=== PATIENT | male | born 1960 ===

== ENCOUNTER 2022-07-05 00:41 | Inpatient (IN) | payer SELFPAY ==
[2022-07-05] VITALS (97 sets, daily range): BP systolic 90–178; BP diastolic 60–125; PULSE 76–124; RESP 12–28; TEMP 36.6–36.9; O2SAT 92–100; BMI 24.0
--- NOTE | 2022-07-05 00:44 | CTR_ITS ---
PROCEDURE INFORMATION: Exam: CT Right Lower Extremity Without Contrast, Foot Exam date and time: 07/05/2022 12:57 AM Age: 61 years old Clinical indication: Other: Infection; Patient HX: Necrotic wound to 2nd digit of RT foot. History of diabetes. TECHNIQUE: Imaging protocol: CT of the Right lower extremity without contrast was performed. Exam focused on the foot. Radiation optimization: All CT scans at this facility use at least one of these dose optimization techniques: automated exposure control; mA and/or kV adjustment per patient size (includes targeted exams where dose is matched to clinical indication); or iterative reconstruction. COMPARISON: No relevant prior studies available. RADIATION DOSE METRICS: Total DLP (mGy-cm): 130.49 FINDINGS: Bones/joints: Destructive bony changes/osteolysis of the right 2nd toe proximal phalanx distal aspect with dorsomedially displaced pathologic fracture. Right 2nd toe middle phalanx bony irregularity and intra osseous gas. Approximately 8 mm right 1st toe proximal phalanx base subcortical cyst versus intraosseous ganglion cyst. Soft tissues: Distal right 2nd toe soft tissue ulcer/defect, soft tissue swelling and subcutaneous emphysema. CT/CT foot RT wo con* [id number] IMPRESSION: 1. Right 2nd toe ulcer with cellulitis, gas gangrene and osteomyelitis with distal right 2nd toe proximal phalanx dorsomedially displaced pathologic fracture. 2. Approximately 8 mm right 1st toe proximal phalanx base subcortical cyst versus intraosseous ganglion cyst.
--- NOTE | 2022-07-05 00:45 | ED_ITS ---
HPI - General Adult General: Chief complaint: Wound/Laceration Stated complaint: Wound R Foot Time Seen by Provider: 07/05/22 00:43 Source: patient Mode of arrival: ambulatory Limitations: no limitations History of Present Illness: 61-year-old male who presents here with EMS he is a diabetic he states he dropped a knife on his foot 2 to 3 weeks ago. He states that he has been trying to treat with peroxide he has been having swelling and redness and some pain. Denies any fevers denies any worsening improving factors has not seen any providers for this. Associated symptoms: Deny chest pain, dyspnea, headache(s), nausea, rash or vomiting Review of Systems Const: Denies: fever(s), chills, body aches or change in appetite Eyes: Denies: blurry vision or eye discomfort ENMT: Denies: throat pain or dental pain Card: Denies: chest pain Resp: Denies: dyspnea GI: Denies: abdominal pain, nausea, vomiting or diarrhea : Denies: dysuria Musc: Reports: extremity pain and extremity swelling Skin/Breast: Denies: rash Neuro: Denies: headache(s) Psych: Denies: depression Ken/Lymph: Denies: easy bruising All/Imm: Denies: urticaria PFSH ED PFSH: Medical History Diabetes Social History (Updated 07/05/22 @ 00:47 by Mason Cueva MD) Substance/Drug Use: never Physical Exam Const: COMMON NORMALS: patient oriented x3 HENMT: COMMON NORMALS: normocephalic and atraumatic HEAD & SCALP: normocephalic and atraumatic Eye: COMMON NORMALS: Equal, round and reactive pupils present and EOMs intact bilaterally PUPIL: Yes Equal, round and reactive pupils present Neck/C-Spine: COMMON NORMALS: full ROM and supple Chest: COMMONS NORMALS: normal inspection of the chest and normal palpation of entire chest wall Resp: COMMON NORMALS: normal respiratory effort, No retractions, No use of ac cessory muscles and clear to auscultation bilaterally AUSCULTATION: clear to auscultation bilaterally Cardio: COMMON NORMALS: regular rate, regular rhythm and No murmurs present (Cardio) RATE: regular rate RHYTHM: regular rhythm GI: COMMON NORMALS: Normal to inspection, nondistended, normoactive bowel sounds present, Soft to palpation, non-tender and no masses PALPATION: Yes Soft to palpation Extremity: OTHER: Swelling to right great and second toe with what appears to be some necrosis Neuro: COMMON NORMALS: patient oriented x3, moves all extremities and no focal motor deficits Psych: COMMON NORMALS: mental status grossly normal, Normal thought process present and cooperative THOUGHT PROCESS: Normal thought process present Skin: COMMON NORMALS: no rashes or lesions noted and no wounds GENERAL SKIN EXAM: no rashes or lesions noted Course Vital Signs: Vital signs: Vital Signs Temperature 98.1 F 07/05/22 00:42 Pulse Rate 106 H 07/05/22 02:13 Respiratory Rate 19 H 07/05/22 02:04 Blood Pressure 141/95 07/05/22 02:13 Pulse Oximetry 98 07/05/22 02:13 Oxygen Delivery Me thod 07/05/22 02:04 MDM - General Adult Medical Decision Making Patient presents here with osteomyelitis of his right second toe he has a history of diabetes I spoke to the hospitalist along with material handling crew supervisor and will admit at this time. Lab Data : 07/05/22 00:50 07/05/22 00:[address] 07/05/22 00:44 IMPRESSION: 1. Right 2nd toe ulcer with cellulitis, gas gangrene and osteomyelitis with distal right 2nd toe proximal phalanx dorsomedially displaced pathologic fracture. 2. Approximately 8 mm right 1st toe proximal phalanx base subcortical cyst versus intraosseous ganglion cyst. ADDENDUM: 07/05/22 0308 THIS REPORT CONTAINS FINDINGS THAT MAY BE CRITICAL TO PATIENT CARE. The findings were verbally communicated via telephone conference with MASON Pedraza at 3:07 AM CDT on 07/05/2022. The findings were acknowledged and understood. Laboratory Results WBC 6.5 10^3/uL (4.0-10.0) 07/05/22 00:50 RBC 4.34 10^6/uL (4.1-5.3) 07/05/22 00:50 Hgb 13.4 g/dL (11.7-16.6) 07/05/22 00:50 Hct 39.2 % (42.0-52.0) L 07/05/22 00:50 MCV 90.3 fl (80-94) 07/05/22 00:50 MCH 30.9 pg (28.0-34.0) 07/05/22 00:50 MCHC 34.2 g/dL (30.0-36.0) 07/05/22 00:50 RDW 11.7 % (12.1-15.1) L 07/05/22 00:50 Plt Count 206 10^3/cmm (130-400) 07/05/22 00:50 MPV 9.5 fL (7.4-10.4) 07/05/22 00:50 Neut % (Auto) 60.7 % 07/05/22 00:50 Lymph % (Auto) 23.3 % 07/05/22 00:50 [place] % (Auto) 13.2 % 07/05/22 00:50 Eos % (Auto) 1.5 % 07/05/22 00:50 Baso % (Auto) 1.1 % 07/05/22 00:50 Neut # (Auto) 3.96 10^3/uL (1.8-7.7) 07/05/22 00:50 Lymph # (Auto) 1.5 10^3/uL (0.8-4.8) 07/05/22 00:50 [place] # (Auto) 0.9 10^3/uL (0.2-0.9) 07/05/22 00:50 Eos # (Auto) 0.1 10^3/uL (0.0-0.8) 07/05/22 00:50 Baso # (Auto) 0.1 10^3/uL (0.0-0.1) 07/05/22 00:50 Nucleated RBC % (auto) 0 % 07/05/22 00:50 Nucleated RBCs # 0.0 /100WBC 07/05/22 00:50 Sodium 125 mmol/L (136-145) L 07/05/22 00:50 Potassium 4.5 mmol/L (3.5-5.1) 07/05/22 00:50 Chloride 85 mmol/L (98-107) L 07/05/22 00:50 Carbon Dioxide 26 mmol/L (22-29) 07/05/22 00:50 Anion Gap 18.5 (5-19) 07/05/22 00:50 BUN 4 mg/dL (8-23) L 07/05/22 00:50 Creatinine 0.6 mg/dL (0.7-1.2) L 07/05/22 00:50 GFR Calculation 136.5 mL/min (90-130) H 07/05/22 00:50 Glucose 460 mg/dL (65-115) H 07/05/22 00:50 POC Glucose 326 mg/dL (70-110) H 07/05/22 02:15 Calculated Osmolality 277 mOsm/kg (285-295) L 07/05/22 00:50 Calcium 9.8 mg/dL (8.5-10.5) 07/05/22 00:50 Total Bilirubin 1.1 mg/dL (0.15-1.2) 07/05/22 00:50 AST 75 U/L (0-40) H 07/05/22 00:50 ALT 35 U/L (0-41) 07/05/22 00:50 Alkaline Phosphatase 297 U/L (40-130) H 07/05/22 00:50 Total Protein 9.5 g/dL (6.6-8.7) H 07/05/22 00:50 Albumin 3.7 g/dL (3.5-5.2) 07/05/22 00:50 Globulin 5.8 g/dL (1.3-4.6) H 07/05/22 00:50 Discharge Plan Discharge Patient Disposition: Admitted As Inpatient Clinical Impression: Diabetes, Osteomyelitis Condition: Stable Coding Level of Care Code ED Appeals Analyst for Anng Fwd Exam Comprehensive
[2022-07-05 01:05] LABS: Basophils # 0.1 10^3/uL (0.0-0.1); Basophils % 1.1 %; Eosinophils # 0.1 10^3/uL (0.0-0.8); Eosinophils % 1.5 %; Hematocrit 39.2 % (42.0-52.0); Hemoglobin 13.4 g/dL (11.7-16.6); Lymphocytes # 1.5 10^3/uL (0.8-4.8); Lymphocytes % 23.3 %; Mean Corpuscular HGB Conc 34.2 g/dL (30.0-36.0); Mean Corpuscular Hemoglobin 30.9 pg (28.0-34.0); Mean Corpuscular Volume 90.3 fl (80-94); Mean Platelet Volume 9.5 fL (7.4-10.4); Monocytes # 0.9 10^3/uL (0.2-0.9); Monocytes % 13.2 %; Neutrophils # 3.96 10^3/uL (1.8-7.7); Neutrophils % 60.7 %; Nucleated Red Blood Cells % 0 %; Platelet Count 206 10^3/cmm (130-400); Red Blood Count 4.34 10^6/uL (4.1-5.3); Red Cell Distribution Width 11.7 % (12.1-15.1); White Blood Count 6.5 10^3/uL (4.0-10.0)
[2022-07-05] MEDS: vancomycin 1,000 MG in sodium chloride 0.9% 250 ML 250 MG IV ×2 (01:22→12:42)
[2022-07-05 01:24] LABS: Alanine Aminotransferase 35 U/L (0-41); Albumin Level 3.7 g/dL (3.5-5.2); Alkaline Phosphatase 297 U/L (40-130); Anion Gap 18.5 (5-19); Aspartate Amino Transferase 75 U/L (0-40); Blood Urea Nitrogen 4 mg/dL (8-23); Calcium 9.8 mg/dL (8.5-10.5); Carbon Dioxide 26 mmol/L (22-29); Chloride 85 mmol/L (98-107); Globulin 5.8 g/dL (1.3-4.6); Glomerular Filtration Rate 136.5 mL/min (90-130); Glucose 460 mg/dL (65-115); Osmolality Calculated 277 mOsm/kg (285-295); Potassium 4.5 mmol/L (3.5-5.1); Sodium 125 mmol/L (136-145); Total Bilirubin 1.1 mg/dL (0.15-1.2); Total Protein 9.5 g/dL (6.6-8.7)
[2022-07-05] MEDS: insulin regular-human 100 units/1 mL 10 UNIT IVP (01:38)
[2022-07-05 02:23] LABS: Glucose Point of Care 326 mg/dL (70-110)
--- NOTE | 2022-07-05 06:01 | P.CONIM_ITS ---
Providers/Reason For Consult Consulting Physician/Specialty*: John Batista D.P.M. Reason for Consult*: Gangrene right second toe Attending Physician: Sharon Perez MD History of Present Illness History of Present Illness Abelardo Houston is a 61 year old uncontrolled diabetic male presents with gas gangrene to the right second toe 2 to 3 weeks in duration. Wound originally started from dropping a knife and landing on his second toe, has been doing at home care consisting of hydrogen peroxide soaks. He became concerned when odor became stronger, redness, swelling and drainage. Primary language is Tuvaluan. Risk Control Analyst utilized to obtain history. Patient denies having any family in [place]. Denies smoking. Does not follow-up with a primary care physician. Is not actively managing his diabetes. Review of Systems General: Reports: 10 or more systems reviewed and unremarkable except in HPI and below Const: Denies: fever(s) or chills Eyes: Denies: change in vision Card: Denies: chest pain or palpitations Resp: Denies: dyspnea or productive cough GI: Denies: abdominal pain, nausea or vomiting : Denies: flank pain Musc: Reports: extremity swelling, joint stiffness and deformity Skin/Breast: Reports: erythema, sores, changes in skin color, dry skin, nail changes and change in hair Neuro: Reports: numbness in extremities, sensory changes and difficulty walking Psych: Denies: suicidal ideation Endo: Denies: change in body appearance Ken/Lymph: Denies: tender lymph nodes Medications/Allergies Allergies Allergy/AdvReac Type Severity Reaction Status Date / Time No Known Allergies Allergy Verified 07/05/22 00:46 PFSH Acute PFSH: Medical History Diabetes Social History (Updated 07/05/22 @ 00:47 by Nesha Cueva MD) Substance/Drug Use: never Vitals/I&O/Wt Last Vital Signs Temp 98.1 F 07/05/22 00:42 Pulse 97 07/05/22 05:59 Resp 17 07/05/22 04:00 BP 144/87 07/05/22 05:59 Pulse Ox 98 07/05/22 05:59 O2 Del Method 07/05/22 04:00 Weight last 48 hrs Weight 140 lb Physical Exam Narrative: GENERAL: Patient is alert and oriented ?3 and in no acute distress. The following is a focused bilateral lower extremity exam. VASCULAR: Dorsalis pedis palpable left and right foot, posterior tibial arteries palpable. Capillary refill time less than 3 seconds to the distal hallux bilaterally. Calf is supple and nontender proximally and distally. Pedal hair growth present. Focal edema to the right second toe. NEUROLOGICAL: Protective sensation intact 0/10 sites, tested with [place] Janeth monofilament to bilateral feet. DERMATOLOGICAL: Open wound exposed bone at the right second toe, purulence and strong malodor present. Cellulitis to the forefoot, no proximal lymphangitic streaking. MUSCULOSKELETAL: Soft tissue crepitus to the right second toe. Hammertoe contracture of the right second with sagittal plane dominance. Able to dorsiflex and plantarflex left and right foot pain-free without guarding. CARDIOVASCULAR: S1, S2, normal rate, normal rhythm. Dorsalis pedis and posterior tibial arteries palpable. LUNGS: Clear to auscltation, no use of acessory muscles, no crackles or wheezes. Data : 07/05/22 00:50 07/05/22 00:50 Micro: Microbiology 07/05/22 01:20 Blood Culture - Preliminary Blood SPECIMEN COLLECTED 07/05/22 00:50 Blood Culture - Preliminary Blood SPECIMEN COLLECTED A&P Assessment and plan (1) Osteomyelitis of second toe of right foot: (2) Gangrene of right foot: (3) Cellulitis of right foot: Plan 61-year-old uncontrolled diabetic male with gas gangrene to the right second toe. CT skin right foot significant for soft tissue emphysema and osseous destruction at the distal and intermediate phalanx consistent with osteomyelitis. No leukocytosis ESR pending Discussed clinical and radiographic findings of gangrene to the right second toe and recommended right second toe amputation at the metatarsal phalangeal joint with likely primary delayed closure, empiric IV antibiotics to be initiated once surgery is completed this morning. Patient is agreeable wishes to proceed. Discussion was carried out Tuvaluan-speaking core composer machine tender. I reviewed at length with the patient, the risks, potential complications, benefits, alternatives, expectations, and typical outcomes associated with the surgery. The risks and potential complications were explained in detail, including but not limited to infection, wound dehiscence or soft tissue complications, bleeding and hematoma, chronic edema, neuritis or nerve damage producing numbness or chronic pain, CRPS, failure to relieve pain or worsening pain, thick / painful / unsightly scar, limited motion / stiffness, malposition, delayed union, malunion, or nonunion, fracture, reaction to implants, anesthetic complications, venous thromboembolism, and deformity recurrence. I discussed the notion of no regrets with the patient as it pertains to complications and outcomes. The patient seemed to understand the nature of the proposed care and required convalescence. They asked appropriate questions, answered to their satisfaction. They are aware no guarantees can be made as to a satisfactory outcome and they understand there may be other possible unforeseen complications or outcomes not listed here that will be treated accordingly if they arise. There were no written or implied guarantees given to the patient. They gave informed consent to proceed. Patient to remain NPO. Right second toe amputation this morning, will initiate empiric IV antibiotics after completing surgery and obtaining surgical cultures. Plan for empiric IV antibiotics and monitoring soft tissue response, primary delayed closure likely within the next 2 to 3 days. Coding Level of Care Code Acute Equipment Maintenance Superintendent for Leo Smith Diagnoses Osteomyelitis of second toe of right foot M86.9 Gangrene of right foot I96 Cellulitis of right foot L03.115
--- NOTE | 2022-07-05 06:25 | PM.HP ---
Providers/Chief Complaint Admitting Physician: Sharon Perez MD Chief Complaint: Wound R Foot History of Present Illness History is obtained via gluer machine setup operator over the phone. Abelardo Houston is a 61 year old male with a past medical history of diabetes mellitus, which he has known about at least over the past 1-1/2 years, not currently on any treatment, does not see any doctors. He states that he sustained an injury over his right foot approximately 3 weeks ago when he was cutting chicken and the knife accidentally slipped and landed on his foot. Since then he has noted intermittent discharge and bleeding from the site. Today while he was in the shower the bleeding became more profuse so his friend brought him over to the emergency room. He also complains of on and off fever over the past 3 weeks, however is unable to tell me his T-max. Currently he is noted to have an open wound between his first and second toes. CT of his foot shows a right second toe ulcer with cellulitis, note made of gas gangrene, however no clinical correlate for the same. Likely that soft tissue gas is related to the wound being open.. Osteomyelitis noted over the distal second proximal phalanx with pathological fracture. He has received 1 dose of IV vancomycin. Review of Systems General: Reports: 10 or more systems reviewed and unremarkable except in HPI and below Const: Denies: fever(s), chills or body aches Eyes: Denies: change in vision, blurry vision or photophobia ENMT: Reports: hoarseness; Denies: throat pain, enlarged tonsils, odynophagia or nasal congestion Card: Denies: chest pain, palpitations, irregular heart rhythm, edema, swelling of feet/ankles, lightheadedness, pre-syncope, dyspnea on exertion or orthopnea Resp: Denies: dyspnea, productive cough, non-productive cough, wheezing, stridor, pain on inspiration, change in phlegm color, hemoptysis or chest congestion GI: Denies: abdominal pain, nausea, vomiting, hematemesis, coffee ground emesis, dysphagia, heartburn, diarrhea, constipation, GI cramping, change in stool character, hematochezia or melena : Denies: flank pain, dysuria, urinary frequency, urinary urgency, urinary hesitancy or hematuria Musc: Denies: neck pain, back pain, extremity pain, joint swelling, joint warmth or deformity Neuro: Denies: headache(s), numbness in extremities, weakness in extremities, sensory changes, difficulty walking, frequent falls, dizziness, vertigo, behavioral changes, Slurred speech present or seizure-like activity Psych: Denies: anxiety, depression, suicidal ideation or homicidal ideation Endo: Denies: polyuria, polydipsia, tired all the time, cold intolerance or hot flashes Ken/Lymph: Denies: easy bruising or easy bleeding Medications/Allergies Allergies Allergy/AdvReac Type Severity Reaction Status Date / Time No Known Allergies Allergy Verified 07/05/22 00:46 PFSH Acute PFSH: Medical History Diabetes Social History (Updated 07/05/22 @ 00:47 by Mason Cueva MD) Substance/Drug Use: never Vitals/I&O/Wt Last Vital Signs Temp 98.1 F 07/05/22 00:42 Pulse 97 07/05/22 05:59 Resp 17 07/05/22 04:00 BP 144/87 07/05/22 05:59 Pulse Ox 98 07/05/22 05:59 O2 Del Method 07/05/22 04:00 Weight last 48 hrs Weight 63.503 kg Physical Exam Narrative: General: No acute distress, AO x3 HEENT: PERRLA, pupils bilaterally equal and reactive, pallors not present Chest: Normal vesicular breath sounds, no added sounds, equal good air entry bilaterally CVS: S1-S2 regular, no murmurs, no tachycardia, no gallops, no rubs Abdomen: Soft, nontender, no organomegaly, bowel sounds present Neuro: No focal deficits, no facial deformity, AO x3, power 5/5 in all limbs Extremities: Open wound noted over first interdigital space. Surrounding bleeding, crusting noted. Data : 07/05/22 00:50 07/05/22 00:50 Other Labs: Radiology Impressions Foot CT 07/05/22 00:44 IMPRESSION: 1. Right 2nd toe ulcer with cellulitis, gas gangrene and osteomyelitis with distal right 2nd toe proximal phalanx dorsomedially displaced pathologic fracture. 2. Approximately 8 mm right 1st toe proximal phalanx base subcortical cyst versus intraosseous ganglion cyst. ADDENDUM: 07/05/22 0308 THIS REPORT CONTAINS FINDINGS THAT MAY BE CRITICAL TO PATIENT CARE. The findings were verbally communicated via telephone conference with MASON Pedraza at 3:07 AM T on 07/05/2022. The findings were acknowledged and understood. Laboratory Results WBC 6.5 10^3/uL (4.0-10.0) 07/05/22 00:50 RBC 4.34 10^6/uL (4.1-5.3) 07/05/22 00:50 Hgb 13.4 g/dL (11.7-16.6) 07/05/22 00:50 Hct 39.2 % (42.0-52.0) L 07/05/22 00:50 MCV 90.3 fl (80-94) 07/05/22 00:50 MCH 30.9 pg (28.0-34.0) 07/05/22 00:50 MCHC 34.2 g/dL (30.0-36.0) 07/05/22 00:50 RDW 11.7 % (12.1-15.1) L 07/05/22 00:50 Plt Count 206 10^3/cmm (130-400) 07/05/22 00:50 MPV 9.5 fL (7.4-10.4) 07/05/22 00:50 Neut % (Auto) 60.7 % 07/05/22 00:50 Lymph % (Auto) 23.3 % 07/05/22 00:50 [place] % (Auto) 13.2 % 07/05/22 00:50 Eos % (Auto) 1.5 % 07/05/22 00:50 Baso % (Auto) 1.1 % 07/05/22 00:50 Neut # (Auto) 3.96 10^3/uL (1.8-7.7) 07/05/22 00:50 Lymph # (Auto) 1.5 10^3/uL (0.8-4.8) 07/05/22 00:50 [place] # (Auto) 0.9 10^3/uL (0.2-0.9) 07/05/22 00:50 Eos # (Auto) 0.1 10^3/uL (0.0-0.8) 07/05/22 00:50 Baso # (Auto) 0.1 10^3/uL (0.0-0.1) 07/05/22 00:50 Nucleated RBC % (auto) 0 % 07/05/22 00:50 Nucleated RBCs # 0.0 /100WBC 07/05/22 00:50 Sodium 125 mmol/L (136-145) L 07/05/22 00:50 Potassium 4.5 mmol/L (3.5-5.1) 07/05/22 00:50 Chloride 85 mmol/L (98-107) L 07/05/22 00:50 Carbon Dioxide 26 mmol/L (22-29) 07/05/22 00:50 Anion Gap 18.5 (5-19) 07/05/22 00:50 BUN 4 mg/dL (8-23) L 07/05/22 00:50 Creatinine 0.6 mg/dL (0.7-1.2) L 07/05/22 00:50 GFR Calculation 136.5 mL/min (90-130) H 07/05/22 00:50 Glucose 460 mg/dL (65-115) H 07/05/22 00:50 POC Glucose 281 mg/dL (70-110) H 07/05/22 06:24 Calculated Osmolality 277 mOsm/kg (285-295) L 07/05/22 00:50 Calcium 9.8 mg/dL (8.5-10.5) 07/05/22 00:50 Total Bilirubin 1.1 mg/dL (0.15-1.2) 07/05/22 00:50 AST 75 U/L (0-40) H 07/05/22 00:50 ALT 35 U/L (0-41) 07/05/22 00:50 Alkaline Phosphatase 297 U/L (40-130) H 07/05/22 00:50 Total Protein 9.5 g/dL (6.6-8.7) H 07/05/22 00:50 Albumin 3.7 g/dL (3.5-5.2) 07/05/22 00:50 Globulin 5.8 g/dL (1.3-4.6) H 07/05/22 00:50 Micro: Microbiology 07/05/22 01:20 Blood Culture - Preliminary Blood SPECIMEN COLLECTED 07/05/22 00:50 Blood Culture - Preliminary Blood SPECIMEN COLLECTED A&P Assessment and plan (1) Osteomyelitis: Patient presenting today with injury over the right foot approximately sustained 3 weeks ago with dirty knife. Worsening discharge, bleeding brought him into the emergency room today. CT is suggestive of changes of osteomyelitis of the metatarsal with pathological fracture and surrounding cellulitis. He has received 1 dose of IV vancomycin in the emergency room. Discussed with podiatry, plan to be taken to the OR this morning for I&D. Patient is currently hemodynamically stable, no overt signs of sepsis. Holding off on further doses of broad-spectrum antibiotics until OR cultures can be obtained. Thereafter may be started on empiric coverage with piperacillin tazobactam and vancomycin. (2) Diabetes: Diabetes mellitus, uncontrolled fingersticks in the 400 range. No anion gap. No current signs of DKA. Received insulin in the emergency room after which blood sugar is 280. Will start him currently on insulin sliding scale. Patient does not take any medications at home. Has not seen a doctor in years. Check HbA1c His foot is not painful, suspect that patient may have diabetic neuropathy contributing here. Plan Pseudohyponatremia, corrected sodium for blood sugar of 460s at 134. No specific intervention for this for now. IV fluids normal saline at 75 cc an hour N.p.o. DVT prophylaxis: With Lovenox. Full code social services counselor consult to assess for insurance options going forward so patient is able to establish follow-up after discharge. Attestations Medical Necessity Statement*: Anticipate greater than 2 midnight admission for IV antibiotics, IV fluids, need for I&D, podiatry assessment. Coding Level of Care Code Acute Bank Officer for Leo Smith Diagnoses Osteomyelitis M86.9 Diabetes E11.9
--- NOTE | 2022-07-05 06:26 | PC.NURSE ---
blood sugar 281
[2022-07-05 06:28] LABS: Glucose Point of Care 281 mg/dL (70-110)
[2022-07-05 06:58] LABS: C Reactive Protein 24.1 mg/L (0.0-4.9)
[2022-07-05 07:00] LABS: Erythrocyte Sedimentation Rate 64 mm/hr (0-10)
[2022-07-05] MEDS: sodium chloride 0.9% 1,000 ML 30 ML IV (07:13)
--- NOTE | 2022-07-05 07:18 | ANES.PREANE2 ---
Pre-Anesthetic Assessment Height/Weight: Height 1.63 m Weight 63.503 kg Temp Pulse Resp BP Pulse Ox O2 Del Method 98.4 F 104 H 16 165/102 98 07/05/22 06:50 07/05/22 06:50 07/05/22 06:50 07/05/22 06:50 07/05/22 06:50 07/05/22 06:50 Operation Date: 07/05/22 07:30 Proposed Procedures p Amputation Toe/s(Right) - John Batista DPM Familial anesthetic complications: None Was Beta Melinda taken within 24 hours: N/A Was Clonidine taken within 24 hours: N/A Last intake: Intake Last Liquid Date 07/04/22 Last Liquid Time 16:00 Last Solid Date 07/04/22 Last Solid Time 16:00 Social No alcohol and No tobacco Exam alert, oriented x 3, clear to auscultation bilaterally and regular rate & rhythm Airway Mallampati: Class II Dentition: chipped Metabolic Diabetes Mellitus Anesthetic Plan ASA status: 3 Anesthesia: MAC Risk of > 500 ml blood loss (7ml/kg in children): No Other Pertinent Information History obtained via parts interpreter - patient poor historian even with parts interpreter. States no medical problems other than DM but he hasn't started any meds for it Medications/Allergies Allergies Allergy/AdvReac Type Severity Reaction Status Date / Time No Known Allergies Allergy Verified 07/05/22 00:46 Current Medications Generic Name Dose Route Start Last Admin Trade Name Freq PRN Reason Stop Dose Admin Sodium Chloride 1,000 mls @ 30 mls/hr 07/05/22 07:00 07/05/22 07:13 Sodium Chloride 0.9% IV 07/06/22 06:59 30 mls/hr .Q24H PAULO Administration PFSH Anesthesia Medical History Diabetes Social History (Updated 07/05/22 @ 00:47 by Nesha Cueva MD) Substance/Drug Use: never Data Anesthesia : 07/05/22 00:50 07/05/22 00:50 Short CBC 07/05/22 Range/Units 00:50 WBC 6.5 (4.0-10.0) 10^3/uL Hgb 13.4 (11.7-16.6) g/dL Hct 39.2 L (42.0-52.0) % MCV 90.3 (80-94) fl Plt Count 206 (130-400) 10^3/cmm Neut % (Auto) 60.7 % Neut # (Auto) 3.96 (1.8-7.7) 10^3/uL BMP 07/05/22 00:50 Sodium 125 L Potassium 4.5 Chloride 85 L Carbon Dioxide 26 BUN 4 L Creatinine 0.6 L Glucose 460 H Calcium 9.8 Liver Function 07/05/22 Range/Units 00:50 Total Bilirubin 1.1 (0.15-1.2) mg/dL AST 75 H (0-40) U/L ALT 35 (0-41) U/L Alkaline Phosphatase 297 H (40-130) U/L Albumin 3.7 (3.5-5.2) g/dL Coags 07/05/22 07/05/22 00:50 00:50 ESR 64 H C-Reactive Protein 24.1 H Microbiology 07/05/22 01:20 Blood Culture - Preliminary Blood SPECIMEN COLLECTED 07/05/22 00:50 Blood Culture - Preliminary Blood SPECIMEN COLLECTED Cardiac Studies: No Data to Display
--- NOTE | 2022-07-05 08:01 | PM.OP ---
Operative Report Date of procedure: July 05, 2022 Pre-op diagnosis: Gas gangrene right second toe Post-op diagnosis: Same Post-op findings: Devitalized soft tissue down to bone right second toe Procedure done: Right second toe amputation at metatarsal phalangeal joint. Implants: None Specimens removed/disposition: Aerobic and anaerobic cultures taken intraoperatively of deep tissues sent to microbiology for gram stain and culture. Pathology: Right second toe sent to pathology for permanent Surgeon: John Batista D.P.M. Shipfitter Helper: [place] Estimated blood loss: 5 See intraoperative documentation IV fluids: None Urine output: None Complications: None Findings: See above Brief History: 61-year-old uncontrolled diabetic male with gas gangrene to the right second toe. CT skin right foot significant for soft tissue emphysema and osseous destruction at the distal and intermediate phalanx consistent with osteomyelitis. No leukocytosis ESR pending Discussed clinical and radiographic findings of gangrene to the right second toe and recommended right second toe amputation at the metatarsal phalangeal joint with likely primary delayed closure, empiric IV antibiotics to be initiated once surgery is completed this morning.? Patient is agreeable wishes to proceed.? Discussion was carried out Citizen Of [place]-speaking hot air furnace installer repairer.? I reviewed at length with the patient, the risks, potential complications, benefits, alternatives, expectations, and typical outcomes associated with the surgery. The risks and potential complications were explained in detail, including but not limited to infection, wound dehiscence or soft tissue complications, bleeding and hematoma, chronic edema, neuritis or nerve damage producing numbness or chronic pain, CRPS, failure to relieve pain or worsening pain, thick / painful / unsightly scar, limited motion / stiffness, malposition, delayed union, malunion, or nonunion, fracture, reaction to implants, anesthetic complications, venous thromboembolism, and deformity recurrence.? I discussed the notion of no regrets with the patient as it pertains to complications and outcomes. The patient seemed to understand the nature of the proposed care and required convalescence. They asked appropriate questions, answered to their satisfaction. They are aware no guarantees can be made as to a satisfactory outcome and they understand there may be other possible unforeseen complications or outcomes not listed here that will be treated accordingly if they arise. There were no written or implied guarantees given to the patient. They gave informed consent to proceed. Procedure: Under mild sedation the patient was brought to the operating room and remained on the gurney in supine position. A timeout was performed. Anesthesia was then administered by the anesthesia service. Local anesthesia was injected by myself consisting of 20 cc of 0.5% Marcaine plain in a right second ray block fashion. Well-padded pneumatic tourniquet applied to the right ankle. Right lower extremity was scrubbed, prepped and draped utilizing normal aseptic technique. No Esmarch bandage or examination was performed due to infection. Tourniquet was inflated to 250 mmHg. Attention was directed to the right second toe where devitalized soft tissue down to and including bone at the distal aspect of the right second toe with foul-smelling purulence, soft tissue crepitus and surrounding erythema. A circumferential incision was made full-thickness down to bone and the right second toe was disarticulated at the metatarsal phalangeal joint and passed from operative field to be sent to pathology for permanent. Around the second metatarsal head deep tissue swabs were taken both aerobic and anaerobic and sent to microbiology for gram stain and culture. Second metatarsal head was visualized and noted to be viable in color and density. Incision was irrigated with copious months of dosing solution. Adjacent soft tissues still had some remaining erythema, there was adequate soft tissue for a delayed closure, will allow empiric of antibiotics to be administered with plans for primary delayed closure should soft tissue improve over the next few days. Dressing consisting of saline wet-to-dry, sterile 4 x 4's, Kerlix and Coban were applied. Tourniquet was deflated and a prompt hyperemic response was noted to the remaining digits of the right foot. Patient tolerated the procedure and anesthesia well and was transferred to the PACU with vital signs stable vascular status intact. Following a period of postoperative monitoring he will be transferred to the medicine service.
[2022-07-05 08:19] LABS: Glucose Point of Care 298 mg/dL (70-110)
[2022-07-05] MEDS: pantoprazole DR 40 mg Tablet PO (08:43)
[2022-07-05] MEDS: sodium chloride 0.9% 1,000 ML 75 ML IV ×2 (08:43→23:19)
[2022-07-05 08:49] LABS: Chol HDL Ratio 3.83 mg/dL (1.0-5.00); Cholesterol 184 mg/dL (0-200); Estmated Average Glucose 269; HDL Cholesterol 48 mg/dL (60-100); LDL Cholesterol Calculated 110 mg/dL (50-129); LDL HDL Ratio 2.29 RATIO (0.00-3.22); Triglycerides 130 mg/dL (0-150)
[2022-07-05 08:53] LABS: Glucose Point of Care 297 mg/dL (70-110)
[2022-07-05] MEDS: insulin lispro 100 unit/1 mL SUBCUT ×4 (08:57→21:21)
[2022-07-05 11:51] LABS: Glucose Point of Care 318 mg/dL (70-110)
--- NOTE | 2022-07-05 12:21 | PC.PHAR ---
pts nurse in icu erin states the pt told her he takes no home medications-pt only speaks Citizen Of [place]-no meds in ext med history show up
[2022-07-05] MEDS: insulin glargine 100 units/1 mL 5 UNIT SUBCUT (12:42)
--- NOTE | 2022-07-05 13:28 | P.PN_ITS ---
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 antibiotics, depending on what his pathology and culture show and how he does surgically, opportunity answer questions, he is only questions how long he is going to be here, he tells me that he is living in [place], with friends, does not have any family Vitals/I&O/Wt Last Vital Signs Temp 98.1 F 07/05/22 08:30 Pulse 91 07/05/22 13:00 Resp 16 07/05/22 13:00 BP 157/95 07/05/22 12:45 Pulse Ox 98 07/05/22 13:00 O2 Del Method 07/05/22 08:37 07/04/22 07/05/22 07/05/22 22:59 06:59 14:59 Intake Total 1300 / 1300 Output Total 802 / 802 Balance 498 / 498 Weight last 48 hrs Weight 60.498 kg Weight 63.503 kg Physical Exam Const: COMMON NORMALS: no acute distress and patient oriented x3 Resp: COMMON NORMALS: normal respiratory effort, No retractions, No use of accessory muscles and clear to auscultation bilaterally AUSCULTATION: clear to auscultation bilaterally Cardio: COMMON NORMALS: regular rate, regular rhythm, S1 normal heart sound present and S2 normal heart sound present RATE: regular rate RHYTHM: regular rhythm HEART SOUNDS: S1 normal heart sound present and S2 normal heart sound present GI: COMMON NORMALS: Normal to inspection, nondistended, normoactive bowel sounds present and non-tender Extremity: NARRATIVE EXTREMITY EXAM: Right foot, wrapped, bandage Neuro: COMMON NORMALS: patient oriented x3 Psych: COMMON NORMALS: mental status grossly normal Data : 07/05/22 00:50 07/05/22 00:50 Micro: Microbiology 07/05/22 01:20 Blood Culture - Preliminary Blood SPECIMEN COLLECTED 07/05/22 00:50 Blood Culture - Preliminary Blood SPECIMEN COLLECTED A&P Assessment and plan (1) Osteomyelitis: Patient presenting today with injury over the right foot approximately sustained 3 weeks ago with dirty knife. Worsening discharge, bleeding brought him into the emergency room today. CT is suggestive of changes of osteomyelitis of the metatarsal with pathological fracture and surrounding cellulitis. -Status post Right second toe amputation at metatarsal phalangeal joint. -Intraoperative cultures taken -Continue vancomycin, Zosyn -Follow cultures (2) Diabetes: Diabetes mellitus, uncontrolled fingersticks in the 400 range. No anion gap. No current signs of DKA. Received insulin in the emergency room after which blood sugar is 280. Will start him currently on insulin sliding scale. Lantus for 5 units every 24 hours, titrate up as he is insulin na?ve His foot is not painful, suspect that patient may have diabetic neuropathy contributing here. Plan Pseudohyponatremia, corrected sodium for blood sugar of 460s at 134. No specific intervention for this for now. IV fluids normal saline at 75 cc an hour Diabetic diet DVT prophylaxis: With Lovenox. Full code human services program specialist consult to assess for insurance options going forward so patient is able to establish follow-up after discharge. Attestations Medical Necessity Statement*: Patient requires hospitalization for diabetic foot, osteomyelitis, inpatient, greater than 2 minutes Coding Level of Care Code Acute Manager Talent for [facility] Diagnoses Osteomyelitis M86.9 Diabetes E11.9
[2022-07-05] MEDS: piperacillin-tazobactam 3.375 GM in sodium chloride 0.9% (plus) 50 ML IV ×2 (13:43→21:20)
--- NOTE | 2022-07-05 13:53 | ANE.PACU2 ---
Inpatient post-anesthesia follow up: Airway intact: Yes Vital signs: Temperature 98.1 F Pulse Rate 91 Respiratory Rate 16 Blood Pressure 157/95 Pulse Oximetry 98 Oxygen Delivery Me thod Room Air Oxygen Flow Rate Fraction of Inspir ed Oxygen Hydration adequate: Yes Nausea and vomiting: No Pain level: 1 Mental status: Baseline
[2022-07-05 17:14] LABS: Glucose Point of Care 149 mg/dL (70-110)
[2022-07-05 19:16] LABS: C Reactive Protein 19.7 mg/L (0.0-4.9)
--- NOTE | 2022-07-05 19:33 | PC.NURSE ---
Dr. Batista redressed surgical site and stated that there would not be an incision debridement on 07/06. They will plan to do a final cleanout/closure on 07/07. Patient tolerated well with minimal serous drainage.
[2022-07-05 19:46] LABS: Erythrocyte Sedimentation Rate 64 mm/hr (0-10)
[2022-07-05 21:19] LABS: Glucose Point of Care 284 mg/dL (70-110)
[2022-07-06] VITALS (109 sets, daily range): BP systolic 106–156; BP diastolic 65–101; PULSE 77–110; RESP 7–26; TEMP 36.4–37.1; O2SAT 92–99
[2022-07-06] MEDS: vancomycin 1,000 MG in sodium chloride 0.9% 250 ML 250 MG IV ×2 (00:43→13:52)
[2022-07-06 04:34] LABS: Basophils # 0.1 10^3/uL (0.0-0.1); Basophils % 1.1 %; Eosinophils # 0.1 10^3/uL (0.0-0.8); Eosinophils % 1.6 %; Hematocrit 36.8 % (42.0-52.0); Hemoglobin 12.3 g/dL (11.7-16.6); Lymphocytes # 1.1 10^3/uL (0.8-4.8); Lymphocytes % 17.2 %; Mean Corpuscular HGB Conc 33.4 g/dL (30.0-36.0); Mean Corpuscular Hemoglobin 30.7 pg (28.0-34.0); Mean Corpuscular Volume 91.8 fl (80-94); Mean Platelet Volume 9.8 fL (7.4-10.4); Monocytes # 0.8 10^3/uL (0.2-0.9); Monocytes % 13.2 %; Neutrophils # 4.23 10^3/uL (1.8-7.7); Neutrophils % 66.6 %; Nucleated Red Blood Cells % 0 %; Platelet Count 187 10^3/cmm (130-400); Red Blood Count 4.01 10^6/uL (4.1-5.3); Red Cell Distribution Width 11.8 % (12.1-15.1); White Blood Count 6.4 10^3/uL (4.0-10.0)
[2022-07-06 04:55] LABS: Alanine Aminotransferase 26 U/L (0-41); Albumin Level 2.7 g/dL (3.5-5.2); Alkaline Phosphatase 173 U/L (40-130); Anion Gap 15.9 (5-19); Aspartate Amino Transferase 60 U/L (0-40); Blood Urea Nitrogen 5 mg/dL (8-23); Calcium 8.7 mg/dL (8.5-10.5); Carbon Dioxide 24 mmol/L (22-29); Chloride 97 mmol/L (98-107); Globulin 4.8 g/dL (1.3-4.6); Glucose 206 mg/dL (65-115); Osmolality Calculated 279 mOsm/kg (285-295); Potassium 3.9 mmol/L (3.5-5.1); Sodium 133 mmol/L (136-145); Total Bilirubin 1.1 mg/dL (0.15-1.2); Total Protein 7.5 g/dL (6.6-8.7)
[2022-07-06] MEDS: piperacillin-tazobactam 3.375 GM in sodium chloride 0.9% (plus) 50 ML IV ×3 (05:59→21:13)
--- NOTE | 2022-07-06 06:08 | PM.PN ---
Subjective Subjective: Status post right second toe amputation left open for further debridement and potential delayed closure. Patient denies any acute events overnight. Denies any pain to the right foot. Dressing clean, dry and intact. Patient denies any subjective nausea, vomiting, fever, chills, shortness of breath or chest pain. Vitals/I&O/Wt Last Vital Signs Temp 98.8 F 07/06/22 04:05 Pulse 84 07/06/22 06:00 Resp 15 07/06/22 04:05 BP 121/78 07/06/22 04:00 Pulse Ox 96 07/06/22 04:05 O2 Del Method 07/05/22 08:37 07/05/22 07/05/22 07/06/22 14:59 22:59 06:59 Intake Total 1750 / 1750 1250 / 3000 450 / 3450 Output Total 802 / 802 1500 / 2302 Balance 948 / 948 -250 / 698 450 / 1148 Weight last 48 hrs Weight 133 lb 6 oz Weight 140 lb Physical Exam Narrative: GENERAL: Patient is alert and oriented ?3 and in no acute distress. The following is a focused bilateral lower extremity exam. VASCULAR: Dorsalis pedis palpable left and right foot, posterior tibial arteries palpable. Capillary refill time less than 3 seconds to the distal hallux bilaterally. Calf is supple and nontender proximally and distally. Pedal hair growth present. Focal edema to the right second toe. NEUROLOGICAL: Protective sensation intact 0/10 sites, tested with [place] Janeth monofilament to bilateral feet. DERMATOLOGICAL: Improving erythema right second toe amputation site. No purulence or malodor. MUSCULOSKELETAL: Status post right second toe amputation, no pain operative site. Data : 07/06/22 04:05 07/06/22 04:05 Micro: Microbiology 07/05/22 01:20 Blood Culture - Preliminary Blood NEGATIVE TO DATE 07/05/22 00:50 Blood Culture - Preliminary Blood NEGATIVE TO DATE A&P Assessment and plan (1) Osteomyelitis of second toe of right foot: (2) Gangrene of right foot: (3) Cellulitis of right foot: Plan 61-year-old uncontrolled diabetic male with gas gangrene to the right second toe. Status post right second toe amputation Scheduled for primary delayed closure right foot tomorrow 07/07/2022 N.p.o. at midnight PT dispensed a cam boot for offloading Continuing empiric IV antibiotics, preliminary shows gram-negative rods, PCR demonstrates MRSA. Planning on 2 weeks of oral antibiotics at discharge Planning on follow-up in podiatry clinic outpatient 07/06/2022 Plan for primary delayed closure tomorrow morning then discharge planning as above? Attestations Medical Necessity Statement*: Gas gangrene right second toe Coding Level of Care Code Acute Corporate Secretary for [facility] Diagnoses Osteomyelitis of second toe of right foot M86.9 Gangrene of right foot I96 Cellulitis of right foot L03.115
[2022-07-06 07:15] LABS: Glucose Point of Care 243 mg/dL (70-110)
[2022-07-06] MEDS: enoxaparin 40 mg/0.4 mL Syringe SUBCUT (08:02)
[2022-07-06] MEDS: insulin lispro 100 unit/1 mL SUBCUT ×4 (08:03→21:14)
[2022-07-06] MEDS: pantoprazole DR 40 mg Tablet PO (08:04)
[2022-07-06] MEDS: insulin glargine 100 units/1 mL 5 UNIT SUBCUT ×2 (09:52→20:15)
--- NOTE | 2022-07-06 10:24 | P.PN_ITS ---
Subjective Subjective: Patient was seen this morning, I spoke to him with a certified court/medical interpreter, he has questions about when he is going to go home, he did not know that he had type 2 diabetes -I in detail discussed with him type 2 diabetes mellitus, will have to have nursing staff instruct him how to inject insulin, how to check his blood sugars, diabetic education -In addition in terms of his foot wound and amputation, he is going need physical therapy here in the hospital, and hopefully we can get by with oral an tibiotics Vitals/I&O/Wt Last Vital Signs Temp 98.8 F 07/06/22 04:05 Pulse 109 H 07/06/22 09:00 Resp 16 07/06/22 09:00 BP 126/85 07/06/22 09:00 Pulse Ox 97 07/06/22 09:00 O2 Del Method 07/06/22 07:00 07/05/22 07/06/22 07/06/22 22:59 06:59 14:59 Intake Total 1250 / 3000 450 / 3450 300 / 300 Output Total 1500 / 2302 300 / 300 Balance -250 / 698 450 / 1148 0 / 0 Weight last 48 hrs Weight 60.498 kg Weight 63.503 kg Physical Exam Const: COMMON NORMALS: no acute distress and patient oriented x3 Resp: COMMON NORMALS: normal respiratory effort, No retractions, No use of accessory muscles and clear to auscultation bilaterally AUSCULTATION: clear to auscultation bilaterally Cardio: COMMON NORMALS: regular rate, regular rhythm, S1 normal heart sound present and S2 normal heart sound present RATE: regular rate RHYTHM: regular rhythm HEART SOUNDS: S1 normal heart sound present and S2 normal heart sound present GI: COMMON NORMALS: Normal to inspection, nondistended, normoactive bowel sounds present, non-tender and no masses Extremity: COMMON NORMALS: no pedal edema Neuro: COMMON NORMALS: patient oriented x3 Psych: COMMON NORMALS: mental status grossly normal Data : 07/06/22 04:05 07/06/22 04:05 Micro: Microbiology 07/05/22 01:20 Blood Culture - Preliminary Blood NEGATIVE TO DATE 07/05/22 00:50 Blood Culture - Preliminary Blood NEGATIVE TO DATE A&P Assessment and plan (1) Osteomyelitis: Patient presenting today with injury over the right foot approximately sustained 3 weeks ago with dirty knife. Worsening discharge, bleeding brought him into the emergency room today. CT is suggestive of changes of osteomyelitis of the metatarsal with pathological fracture and surrounding cellulitis. -Status post Right second toe amputation at metatarsal phalangeal joint postop day 1 -Intraoperative cultures taken, follow -Continue vancomycin, Zosyn -Hopefully will have closure tomorrow morning (2) Diabetes: Diabetes mellitus, uncontrolled fingersticks in the 400 range. No anion gap. No current signs of DKA. Received insulin in the emergency room after which blood sugar is 280. Will start him currently on insulin sliding scale. Lantus for 5 units every 12 hours hours, titrate up as he is insulin na?ve, monitor with sliding scale His foot is not painful, suspect that patient may have diabetic neuropathy contributing here. Plan Pseudohyponatremia, resolved Stop fluids Diabetic diet Hydrocodone for pain DVT prophylaxis: With Lovenox. Full code manager environmental services consult to assess for insurance options going forward so patient is able to establish follow-up after discharge. Attestations Medical Necessity Statement*: Patient quires hospitalization for osteomyelitis, diabetes Coding Level of Care Code Acute Brick Machine Operator for [facility] Diagnoses Osteomyelitis M86.9 Diabetes E11.9
[2022-07-06 11:32] LABS: Glucose Point of Care 248 mg/dL (70-110)
--- NOTE | 2022-07-06 12:46 | PC.CHAP ---
Pastoral Care Encounter/Spiritual Assessment Type of Contact [] Declined housekeeper supervisor visit [] Patient/Family/Request visit [] Outpatient visit [] Follow-up visit [] Physician referral [] Code/Alert [x] Routine visit [] Staff referral [] Actively dying [] Patient sleeping [] Family support [] [] Out of room [] Palliative care [] [] Receiving care in room [] Pre-surgical visit [] Trauma [] Long length of stay [x] ICU visit [] Other: Relational/Emotional Strength [] Patient feels connected with others/family/visitors/staff [] Distress [] Loneliness/isolation [] Abandonment Spirituality of Patient [] Person of Lily [] Attends Faith of their Lily [] Believes in Prayer [] Reads Bible or Anabaptist materials [] There are Spiritual issues to be addressed Business Development Coordinator Interventions [x] Prayer [] Active listening [] Non-anxious presence [] Spiritual/emotional support [] Crisis/trauma care [] Spiritual counseling [] Bereavement support [] Provided bereavement packet [] Provided Bible/devotional materials [] Provided toy/stuffed animal, coloring book to patient or family member [] Provided Communion [] Anointing/[place] [] Salvation [x] Completed spiritual assessment [] Other: Impact on Illness or Injury [] Angry [] Fearful [] Anxious [] Often cries [] Exhaustion [] Unable to work [] Unable to attend zoroastrian [] Unable to walk/stand [] Unable to read [] Unable to drive [] Unable to eat/drink [] Unable to sleep [] Unable to be with family [] Patient intubated [] Other: Summary speak no Ukrainian Time spent with patient
[2022-07-06 17:13] LABS: Glucose Point of Care 276 mg/dL (70-110)
[2022-07-06 20:04] LABS: Glucose Point of Care 283 mg/dL (70-110)
[2022-07-06 21:09] LABS: Glucose Point of Care 206 mg/dL (70-110)
[2022-07-07] VITALS (82 sets, daily range): BP systolic 105–151; BP diastolic 68–107; PULSE 69–105; RESP 7–24; TEMP 36.3–37.1; O2SAT 92–99
--- NOTE | 2022-07-07 00:09 | PC.NURSE ---
Patient signed consent utilizing a recruitment officer(via phone) and verified with second nurse. Patient teaching regarding diabetes management, hyper/hypoglycemia, insulin, diet, exercise, tight glycemic control, and followup appointments was given. Patient has been able to return demonstration of BG checks and insulin admin. Further teaching is still needed once medication prescriptions are ordered for home. Patient asked questions through recruitment officer and is showing some understanding and willingness to comply based on verbal comments. This nurse does have concerns with how client will afford medication/supplies as well as followup appointments. Follow up with Case Management is necessary.
[2022-07-07 00:38] LABS: Basophils # 0.1 10^3/uL (0.0-0.1); Eosinophils # 0.2 10^3/uL (0.0-0.8); Eosinophils % 2.5 %; Hematocrit 37.8 % (42.0-52.0); Hemoglobin 12.6 g/dL (11.7-16.6); Lymphocytes # 1.3 10^3/uL (0.8-4.8); Lymphocytes % 21.6 %; Mean Corpuscular HGB Conc 33.3 g/dL (30.0-36.0); Mean Corpuscular Hemoglobin 31.1 pg (28.0-34.0); Mean Corpuscular Volume 93.3 fl (80-94); Mean Platelet Volume 9.5 fL (7.4-10.4); Monocytes # 0.9 10^3/uL (0.2-0.9); Monocytes % 14.8 %; Neutrophils % 59.8 %; Nucleated Red Blood Cells % 0 %; Platelet Count 198 10^3/cmm (130-400); Red Blood Count 4.05 10^6/uL (4.1-5.3); Red Cell Distribution Width 11.8 % (12.1-15.1)
[2022-07-07 00:59] LABS: Vancomycin Trough 6.8 ug/mL (10-15)
[2022-07-07 01:00] LABS: Alanine Aminotransferase 32 U/L (0-41); Alkaline Phosphatase 174 U/L (40-130); Anion Gap 14.4 (5-19); Aspartate Amino Transferase 70 U/L (0-40); Blood Urea Nitrogen 7 mg/dL (8-23); Calcium 9.2 mg/dL (8.5-10.5); Carbon Dioxide 27 mmol/L (22-29); Chloride 98 mmol/L (98-107); Glomerular Filtration Rate 168.5 mL/min (90-130); Glucose 107 mg/dL (65-115); Osmolality Calculated 280 mOsm/kg (285-295); Potassium 3.4 mmol/L (3.5-5.1); Sodium 136 mmol/L (136-145); Total Bilirubin 0.9 mg/dL (0.15-1.2)
[2022-07-07] MEDS: vancomycin 1,000 MG in sodium chloride 0.9% 250 ML 250 MG IV ×2 (01:39→10:36)
--- NOTE | 2022-07-07 06:15 | P.PN_ITS ---
Subjective Subjective: Status post right second toe amputation left open for further debridement and potential delayed closure. Patient denies any acute events overnight. Denies any pain to the right foot. Dressing clean, dry and intact. Patient denies any subjective nausea, vomiting, fever, chills, shortness of terry ath or chest pain. Vitals/I&O/Wt Last Vital Signs Temp 98.6 F 07/07/22 00:00 Pulse 77 07/07/22 04:50 Resp 12 07/07/22 04:50 BP 132/87 07/07/22 04:50 Pulse Ox 92 07/07/22 04:50 O2 Del Method 07/06/22 07:00 07/06/22 07/06/22 07/07/22 14:59 22:59 06:59 Intake Total 800 / 800 750 / 1550 300 / 1850 Output Total 300 / 300 600 / 900 Balance 500 / 500 150 / 650 300 / 950 Weight last 48 hrs Weight 133 lb 6 oz Physical Exam Narrative: GENERAL: Patient is alert and oriented ?3 and in no acute distress. The following is a focused bilateral lower extremity exam. VASCULAR: Dorsalis pedis palpable left and right foot, posterior tibial arteries palpable. Capillary refill time less than 3 seconds to the distal hallux bilaterally. Calf is supple and nontender proximally and distally. Pedal hair growth present. Focal edema to the right second toe. NEUROLOGICAL: Protective sensation intact 0/10 sites, tested with [place] Janeth monofilament to bilateral feet. DERMATOLOGICAL: Improving erythema right second toe amputation site. No purulence or malodor. MUSCULOSKELETAL: Status post right second toe amputation, no pain operative site. Data : 07/07/22 00:17 07/07/22 00:17 Micro: Microbiology 07/05/22 12:15 MRSA Culture - Final Nose 07/05/22 07:37 Abscess Culture - Preliminary Toe,Second Right Gram Negative Rods 07/05/22 01:20 Blood Culture - Preliminary Blood NEGATIVE TO DATE A&P Assessment and plan (1) Osteomyelitis of second toe of right foot: (2) Gangrene of right foot: (3) Cellulitis of right foot: Plan 61-year-old uncontrolled diabetic male with gas gangrene to the right second toe. Status post right second toe amputation Primary delayed closure this a.m. 07/07/2022 Patient is n.p.o. PT dispensed a cam boot for offloading Continuing empiric IV antibiotics, preliminary shows gram-negative rods, PCR demonstrates MRSA. Planning on 2 weeks of oral antibiotics at discharge Planning on follow-up in podiatry clinic outpatient 07/06/2022 Attestations Medical Necessity Statement*: Gangrene right second toe Coding Level of Care Code Acute Disk Operator for [facility] Fwd Diagnoses Osteomyelitis of second toe of right foot M86.9 Gangrene of right foot I96 Cellulitis of right foot L03.115
[2022-07-07] MEDS: sodium chloride 0.9% 1,000 ML 30 ML IV (06:40)
--- NOTE | 2022-07-07 06:48 | W.PM.OPSUD ---
Surgery/Procedure H&P Update DATE OF PROCEDURE: July 07, 2022 DATE H&P PERFORMED: 07/05/22 CHANGES TO PREVIOUS DOCUMENTATION: None PLANNED PROCEDURE: Operation Date: 07/05/22 07:30 Proposed Procedures p Amputation Toe/s(Right) - John Batista DPM Operation Date: 07/06/22 12:10 Proposed Procedures p Incision And Drainage RIGHT FOOT(Right) - John Batista DPM Operation Date: 07/07/22 07:00 Proposed Procedures p Delayed Wound Closure(Right) - John Batista DPM
--- NOTE | 2022-07-07 07:02 | PM.OP ---
Operative Report Date of procedure: July 07, 2022 Pre-op diagnosis: Gas gangrene right second toe. Status post right second toe imitation Post-op diagnosis: Same Procedure done: Primary delayed closure right foot. CPT code 70312 Implants: 3-0 Vicryl, 4-0 nylon Specimens removed/disposition: None Pathology: None Surgeon: John Batista D.P.M. Estimated blood loss: 5 9 IV fluids: None Urine output: None Complications: None Findings: Improved soft tissue Brief History: Status post right second toe amputation secondary to gangrene left open for further debridement and soft tissue envelope improvement. Over the course of the past 2 days receiving empiric IV antibiotics and status post amputation the surrounding soft tissue demonstrated improvement. Will require further debridement and primary delayed closure. Procedure: Under mild sedation the patient was brought to the operating room and remained on the gurney in supine position. A timeout was performed. Anesthesia was then administered by the anesthesia service. Local anesthesia injected by myself second ray block right foot utilizing 10 cc of 0.5% Marcaine plain. Well-padded pneumatic tourniquet applied to the right ankle. Right lower extremity was then scrubbed, prepped and draped utilizing normal aseptic technique. Attention was directed to the right foot where the amputation site of the right second toe at the level of the metatarsal phalangeal joint was evacuated of hematoma and sharply debrided of devitalized subcutaneous tissue with pickups and a 15 blade followed by flush with copious amounts of sterile saline solution. Skin margins at this point appeared viable and had bleeding margins. All major bleeders were ligated and cauterized as necessary. This was then closed with subcutaneous tissue reapproximated with 3-0 Vicryl and skin with 4-0 nylon. The incision was then dressed with Adaptic, sterile 4 x 4, Kerlix and Coban. Tourniquet was deflated and a prompt hyperemic response was noted to the distal digits of the right foot. Patient tolerated the procedure and anesthesia well and was transferred to the PACU with vital signs stable and vascular status intact. Following a period of postop monitoring he will be transferred back to the floor. Patient is okay for discharge from podiatry standpoint. Cleared for discharge from podiatry standpoint. He is to heel touch only for transfers otherwise to elevate his right foot. He is utilize the postop shoe or cam boot when ambulating. Recommend 2-week oral antibiotic regimen on discharge. Will need to cover for gram-negative rods and MRSA.
--- NOTE | 2022-07-07 08:04 | ANES.PREANE2 ---
Pre-Anesthetic Assessment Height/Weight: Height 1.63 m Weight 60.498 kg Temp Pulse Resp BP Pulse Ox O2 Del Method O2 Flow Rate 97.3 F L 72 16 112/72 95 6 07/07/22 07:46 07/07/22 07:46 07/07/22 07:46 07/07/22 07:46 07/07/22 07:46 07/07/22 07:46 07/07/22 07:31 Operation Date: 07/05/22 07:30 Proposed Procedures p Amputation Toe/s(Right) - John Batista DPM Operation Date: 07/06/22 12:10 Proposed Procedures p Incision And Drainage RIGHT FOOT(Right) - John Batista DPM Operation Date: 07/07/22 07:00 Proposed Procedures p Delayed Wound Closure(Right) - John Batista DPM Familial anesthetic complications: none Was Beta Melinda taken within 24 hours: N/A Was Clonidine taken within 24 hours: N/A Last intake: Intake Last Liquid Date 07/04/22 Last Liquid Time 16:00 Last Solid Date 07/04/22 Last Solid Time 16:00 Social No alcohol and No tobacco Exam alert, oriented x 3, clear to auscultation bilaterally and regular rate & rhythm Airway Submandibular: within normal limits Cervical ROM: within normal limits Mallampati: Class II Dentition: chipped Comments: Comments: poor dentition, multiple chipped Metabolic Diabetes Mellitus Anesthetic Plan ASA status: 3 Anesthesia: Choice Medications/Allergies Home Medications Medication Instructions Recorded Confirmed Last Taken Type No Known Home Medications 07/05/22 07/05/22 Unknown History Allergies Allergy/AdvReac Type Severity Reaction Status Date / Time No Known Allergies Allergy Verified 07/05/22 00:46 Current Medications Generic Name Dose Route Start Last Admin Trade Name Freq PRN Reason Stop Dose Admin Enoxaparin Sodium 40 mg 07/05/22 07:00 07/06/22 08:02 Enoxaparin 40 Mg/0.4 Ml Syringe SUBCUT 40 mg Q24H PAULO Administration Piperacillin Sod/Tazobactam 50 mls @ 12.5 mls/hr 07/05/22 14:00 07/07/22 02:28 Sod 3.375 gm/ Sodium Chloride IV Infused Q8H PAULO Infusion Protocol Sodium Chloride 1,000 mls @ 30 mls/hr 07/07/22 06:45 07/07/22 06:40 Sodium Chloride 0.9% IV 07/08/22 06:44 30 mls/hr .Q24H PAULO Administration Insulin Glargine 5 unit 07/06/22 08:00 07/06/22 20:15 Insulin Glargine 100 Units/1 Ml SUBCUT 5 unit Q12H PAULO Administration Insulin Human Lispro 0 unit 07/05/22 08:00 07/06/22 21:14 Insulin Lispro 100 Unit/1 Ml SUBCUT 6 unit WM&BEDTIME PAULO Administration Protocol Pantoprazole Sodium 40 mg 07/05/22 09:00 07/06/22 08:[address] 40 Mg Tablet PO 40 mg DAILY PAULO Administration PFS Anesthesia Medical History Diabetes Data Anesthesia : 07/07/22 00:17 07/07/22 00:17 Short CBC 07/06/22 07/07/22 Range/Units 04:05 00:17 WBC 6.4 6.0 (4.0-10.0) 10^3/uL Hgb 12.3 12.6 (11.7-16.6) g/dL Hct 36.8 L 37.8 L (42.0-52.0) % MCV 91.8 93.3 (80-94) fl Plt Count 187 198 (130-400) 10^3/cmm Neut % (Auto) 66.6 59.8 % Neut # (Auto) 4.23 3.60 (1.8-7.7) 10^3/uL BMP 07/06/22 07/07/22 04:05 00:17 Sodium 133 L 136 Potassium 3.9 3.4 L Chloride 97 L 98 Carbon Dioxide 24 27 BUN 5 L 7 L Creatinine 0.4 L 0.5 L Glucose 206 H 107 Calcium 8.7 9.2 Liver Function 07/06/22 07/07/22 Range/Units 04:05 00:17 Total Bilirubin 1.1 0.9 (0.15-1.2) mg/dL AST 60 H 70 H (0-40) U/L ALT 26 32 (0-41) U/L Alkaline Phosphatase 173 H 174 H (40-130) U/L Albumin 2.7 L 3.0 L (3.5-5.2) g/dL Coags 07/05/22 07/05/22 18:18 18:18 ESR 64 H C-Reactive Protein 19.7 H Microbiology 07/05/22 12:15 MRSA Culture - Final Nose 07/05/22 07:37 Abscess Culture - Preliminary Toe,Second Right Gram Negative Rods Cardiac Studies: No Data to Display
[2022-07-07 09:30] LABS: Glucose Point of Care 214 mg/dL (70-110)
[2022-07-07] MEDS: piperacillin-tazobactam 3.375 GM in sodium chloride 0.9% (plus) 50 ML IV (09:33)
[2022-07-07 11:35] LABS: Glucose Point of Care 199 mg/dL (70-110)
[2022-07-07] MEDS: insulin lispro 100 unit/1 mL SUBCUT ×3 (12:37→21:02)
--- NOTE | 2022-07-07 13:05 | P.PN_ITS ---
Subjective Subjective: Patient was seen this morning, after postop, I spoke to patient through certified court/medical interpreter, he tells me he is feeling better, I had a detailed discussion about diabetes management, checking his blood sugars, giving himself insulin, he seems hesitant about giving himself insulin, and checking his blood sugar, and I am quite concerned about him going home without appropriate diabetic education and monitoring, risk of hypoglycemia, especially the as there is a language barrier, and patient does not read. I have discussed with nursing staff at bedside, for the next 24 hours were going to have him check his blood sugars give himself insulin and monitor him closely, and appropriate diabetic ed ucation, if he is able to do well in terms of his diabetic management, we will discharge him tomorrow, in the meantime I will switch him over to p.o. antibiotics, PT OT Vitals/I&O/Wt Last Vital Signs Temp 97.3 F L 07/07/22 07:46 Pulse 81 07/07/22 12:00 Resp 15 07/07/22 12:00 BP 126/80 07/07/22 12:00 Pulse Ox 97 07/07/22 12:00 O2 Del Method 07/07/22 07:46 O2 Flow Rate 6 07/07/22 07:31 07/06/22 07/07/22 07/07/22 22:59 06:59 14:59 Intake Total 750 / 1550 300 / 1850 50 / 50 Output Total 600 / 900 Balance 150 / 650 300 / 950 49 / 49 Physical Exam Const: COMMON NORMALS: no acute distress and patient oriented x3 Resp: COMMON NORMALS: normal respiratory effort, No retractions, No use of accessory muscles and clear to auscultation bilaterally AUSCULTATION: clear to auscultation bilaterally Cardio: COMMON NORMALS: regular rate, regular rhythm, S1 normal heart sound present and S2 normal heart sound present RATE: regular rate RHYTHM: regu lar rhythm HEART SOUNDS: S1 normal heart sound present and S2 normal heart sound present GI: COMMON NORMALS: Normal to inspection, nondistended, normoactive bowel sounds present, non-tender and No hepatosplenomegaly present PALPATION: Yes No hepatosplenomegaly present Extremity: COMMON NORMALS: no pedal edema Neuro: COMMON NORMALS: patient oriented x3 Psych: COMMON NORMALS: mental status grossly normal Data : 07/07/22 00:17 07/07/22 00:17 Micro: Microbiology 07/05/22 12:15 MRSA Culture - Final Nose 07/05/22 07:37 Abscess Culture - Preliminary Toe,Second Right Gram Negative Rods A&P Assessment and plan (1) Osteomyelitis: Patient presenting today with injury over the right foot approximately sustained 3 weeks ago with dirty knife. Worsening discharge, bleeding brought him into the emergency room today. CT is suggestive of changes of osteomyelitis of the metatarsal with pathological fracture and surrounding cellulitis. -Status post Right second toe amputation at metatarsal phalangeal joint postop day 2, status post primary delayed closure right foot postop day 0 -Intraoperative cultures taken, show gram-negative rods -De-escalate IV antibiotics, to doxycycline and ciprofloxacin p.o. -Likely discharge tomorrow (2) Diabetes: Diabetes mellitus, uncontrolled fingersticks in the 400 range. No anion gap. No current signs of DKA. Received insulin in the emergency room after which blood sugar is 280. Will start him currently on insulin sliding scale. Lantus for 5 units every 12 hours hours, titrate up as he is insulin na?ve, monitor with sliding scale, is to have appropriate diabetic education His foot is not painful, suspect that patient may have diabetic neuropathy contributing here. Plan Pseudohyponatremia, resolved Stop fluids Diabetic diet Hydrocodone for pain DVT prophylaxis: With Lovenox. Full code ambulatory services representative consult to assess for insurance options going forward so patient is able to establish follow-up after discharge. Attestations Medical Necessity Statement*: Patient requires hospitalization for diabetic foot infection Coding Level of Care Code Acute Deputy Chief Magistrate for Leo Smith Diagnoses Osteomyelitis M86.9 Diabetes E11.9
--- NOTE | 2022-07-07 13:27 | ANE.PACU2 ---
Inpatient post-anesthesia follow up: Airway intact: Yes Vital signs: Temperature 97.3 F Pulse Rate 81 Respiratory Rate 15 Blood Pressure 126/80 Pulse Oximetry 97 Oxygen Delivery Me thod Room Air Oxygen Flow Rate 6 Fraction of Inspir ed Oxygen Hydration adequate: Yes Nausea and vomiting: No Pain level: 2 Mental status: Baseline
[2022-07-07 16:56] LABS: Glucose Point of Care 360 mg/dL (70-110)
[2022-07-07] MEDS: doxycycline 100 mg Tablet PO (17:40)
[2022-07-07] MEDS: ciprofloxacin 500 mg Tablet PO (17:40)
--- NOTE | 2022-07-07 18:04 | PC.NURSE ---
Patient was taken to [facility] via wheelchair on room air. All belongings were taken and placed bedside bed.
[2022-07-07 20:46] LABS: Glucose Point of Care 229 mg/dL (70-110)
[2022-07-07] MEDS: insulin glargine 100 units/1 mL 5 UNIT SUBCUT (21:02)
[2022-07-08 04:00] VITALS: BP 128/86; PULSE 98; RESP 16; TEMP 37.3; O2SAT 98
[2022-07-08 05:09] VITALS: PULSE 83
[2022-07-08 06:21] LABS: Glucose Point of Care 200 mg/dL (70-110)
[2022-07-08 07:32] VITALS: BP 123/81; PULSE 86; RESP 18; TEMP 37.1; O2SAT 98
[2022-07-08] MEDS: insulin glargine 100 units/1 mL 5 UNIT SUBCUT (08:46)
[2022-07-08] MEDS: enoxaparin 40 mg/0.4 mL Syringe SUBCUT (08:46)
[2022-07-08] MEDS: pantoprazole DR 40 mg Tablet PO (08:47)
[2022-07-08] MEDS: ciprofloxacin 500 mg Tablet PO (08:47)
[2022-07-08] MEDS: doxycycline 100 mg Tablet PO (08:47)
[2022-07-08] MEDS: insulin lispro 100 unit/1 mL SUBCUT (10:04)
--- NOTE | 2022-07-08 10:51 | PM.DCS ---
Discharge Providers Date of Admission: 07/05/22 06:03 Date of Discharge: July 08, 2022 Attending Provider at Admission: Sharon Perez MD Attending Provider at Discharge: Krunal Silverio MD Diagnoses at Discharge Discharge Diagnosis (1) Osteomyelitis: Status: Acute (2) Diabetes: Status: Acute Reason for Visit Reason for Visit: Wound R Foot Hospital Course Hospital Course This is a 61-year-old male with no significant past medical history, who presents to [facility] due to right foot diabetic ulcer, with cellulitis, with gangrene, with concern for osteomyelitis of the second toe right foot Patient was admitted, was seen by podiatry service, status post right second toe amputation of the metatarsal phalangeal joint, then had closure of right foot within 48 hours, managed with broad-spectrum antibiotic therapy, cultures so far show gram-negative rods, overall he clinically improved, discharged on 2 weeks of Cipro for gram-negative coverage and doxycycline for MRSA coverage Patient had newly diagnosed type 2 diabetes mellitus, A1c 11, received extensive inpatient diabetic education. Patient is French-speaking, and does not know how to read. Thus every single day I saw patient, I used a airplane tester, and in detail explained his right foot infection, and explained his type 2 diabetes mellitus to him. On day of discharge I have extensively gone over type 2 diabetes mellitus personally, checking his blood sugars, NovoLog, not Lantus, hypoglycemia, morbidity or mortality associate with hypoglycemia, nursing staff were also present. I also in detail went over Dr. Batista's discharge instructions, his right foot diabetic ulcer postop instructions. In addition nursing staff have gone over how to check his blood sugar, how to give himself insulin, in addition I had his medications delivered to bedside on Sunday, so that nursing staff could go over all his Lantus and NovoLog pens and his new glucometer with him. I will have him follow-up with his primary care provider early next week - For his right foot surgery, heel touch only for transfers, otherwise utilize postop shoe or cam boot when ambulating -Keep surgical site and bandage on, keep it clean and dry, for showers please keep it covered with a plastic bag -Do not change dressings, follow-up with Dr. Batista next week for dressing changes -Please take antibiotics for a total of 2 weeks, drink plenty of electrolyte balance fluids such as water or Gatorade -Please monitor your blood sugars closely -Monitor your blood sugars 3 times daily as after meals -Please record your blood sugars, and a blood sugar log -For your NovoLog -Please inject blood sugar after meals based on sliding scale provided -Do not inject insulin if you do not eat as hypoglycemia kills -This is a NovoLog sliding scale -Insulin sliding fingerstick? Insulin 141-180?2 units/sq 181-220?4 units/sq 221-260?6 units/sq 261-300?8 units/sq 301-350 10 units/sq 351-400 12 units/sq > 400? 14 units/sq -For your Lantus, inject 5 units every 12 hours -Do not inject Lantus based on sliding scale -Inject Lantus 5 units every 12 hours scheduled, please follow-up with primary care provider for changes in the dose -If your blood sugar is greater than 500 go to the emergency room -If your blood sugar is less than 60 or at anytime you feel lightheaded or dizzy or diaphoretic or have chest palpitations check your blood sugar, and eat a hard candy or drink orange juice and go immediately to the emergency room -Remember hypoglycemia kills, so if his blood sugar is less than 60 we have to increase it by taking in a sugary meal such as a hard candy or orange juice and go to the emergency room -If you have any questions please call us where here to help Physical Exam Const: COMMON NORMALS: no acute distress and patient oriented x3 Resp: COMMON NORMALS: normal respiratory effort, No retractions, No use of accessory muscles and clear to auscultation bilaterally AUSCULTATION: clear to auscultation bilaterally Cardio: COMMON NORMALS: regular rate, regular rhythm, S1 normal heart sound present and S2 normal heart sound present RATE: regular rate RHYTHM: regular rhythm HEART SOUNDS: S1 normal heart sound present and S2 normal heart sound present GI: COMMON NORMALS: Normal to inspection, nondistended, normoactive bowel sounds present and non-tender Extremity: COMMON NORMALS: no pedal edema NARRATIVE EXTREMITY EXAM: Right foot diabetic ulcer, wrapped and bandaged Neuro: COMMON NORMALS: patient oriented x3 Psych: COMMON NORMALS: mental status grossly normal Discharge Data Studies Completed and Pending Completed Studies During Hospitalization Category Date Time Status CT foot RT wo con* [id number] Stat Cat Scan 07/05/22 00:44 Completed Pending at discharge Category Date Time Status Abscess Culture Routine Lab 07/05/22 07:37 Results Abscess Culture and Gram Stain Routine Lab 07/05/22 07:37 Received Blood Culture Stat Lab 07/05/22 01:20 Results Pathology: Surgical [PTH] Routine Pth 07/05/22 07:41 Received Radiology Impressions Foot CT 07/05/22 00:44 IMPRESSION: 1. Right 2nd toe ulcer with cellulitis, gas gangrene and osteomyelitis with distal right 2nd toe proximal phalanx dorsomedially displaced pathologic fracture. 2. Approximately 8 mm right 1st toe proximal phalanx base subcortical cyst versus intraosseous ganglion cyst. ADDENDUM: 07/05/22 0308 THIS REPORT CONTAINS FINDINGS THAT MAY BE CRITICAL TO PATIENT CARE. The findings were verbally communicated via telephone conference with MASON Pedraza at 3:07 AM CDT on 07/05/2022. The findings were acknowledged and understood. Laboratory Results WBC 6.0 10^3/uL (4.0-10.0) 07/07/22 00:17 RBC 4.05 10^6/uL (4.1-5.3) L 07/07/22 00:17 Hgb 12.6 g/dL (11.7-16.6) 07/07/22 00:17 Hct 37.8 % (42.0-52.0) L 07/07/22 00:17 MCV 93.3 fl (80-94) 07/07/22 00:17 MCH 31.1 pg (28.0-34.0) 07/07/22 00:17 MCHC 33.3 g/dL (30.0-36.0) 07/07/22 00:17 RDW 11.8 % (12.1-15.1) L 07/07/22 00:17 Plt Count 198 10^3/cmm (130-400) 07/07/22 00:17 MPV 9.5 fL (7.4-10.4) 07/07/22 00:17 Neut % (Auto) 59.8 % 07/07/22 00:17 Lymph % (Auto) 21.6 % 07/07/22 00:17 [place] % (Auto) 14.8 % 07/07/22 00:17 Eos % (Auto) 2.5 % 07/07/22 00:17 Baso % (Auto) 1.0 % 07/07/22 00:17 Neut # (Auto) 3.60 10^3/uL (1.8-7.7) 07/07/22 00:17 Lymph # (Auto) 1.3 10^3/uL (0.8-4.8) 07/07/22 00:17 [place] # (Auto) 0.9 10^3/uL (0.2-0.9) 07/07/22 00:17 Eos # (Auto) 0.2 10^3/uL (0.0-0.8) 07/07/22 00:17 Baso # (Auto) 0.1 10^3/uL (0.0-0.1) 07/07/22 00:17 Nucleated RBC % (auto) 0 % 07/07/22 00:17 Nucleated RBCs # 0.0 /100WBC 07/07/22 00:17 ESR 64 mm/hr (0-10) H 07/05/22 18:18 Sodium 136 mmol/L (136-145) 07/07/22 00:17 Potassium 3.4 mmol/L (3.5-5.1) L 07/07/22 00:17 Chloride 98 mmol/L (98-107) 07/07/22 00:17 Carbon Dioxide 27 mmol/L (22-29) 07/07/22 00:17 Anion Gap 14.4 (5-19) 07/07/22 00:17 BUN 7 mg/dL (8-23) L 07/07/22 00:17 Creatinine 0.5 mg/dL (0.7-1.2) L 07/07/22 00:17 GFR Calculation 168.5 mL/min (90-130) H 07/07/22 00:17 Glucose 107 mg/dL (65-115) 07/07/22 00:17 POC Glucose 200 mg/dL (70-110) H 07/08/22 06:13 Estimat Average Glucose 269 07/05/22 00:50 Hemoglobin A1c 11.0 % (4.0-6.0) H 07/05/22 00:50 Calculated Osmolality 280 mOsm/kg (285-295) L 07/07/22 00:17 Calcium 9.2 mg/dL (8.5-10.5) 07/07/22 00:17 Total Bilirubin 0.9 mg/dL (0.15-1.2) 07/07/22 00:17 AST 70 U/L (0-40) H 07/07/22 00:17 ALT 32 U/L (0-41) 07/07/22 00:17 Alkaline Phosphatase 174 U/L (40-130) H 07/07/22 00:17 C-Reactive Protein 19.7 mg/L (0.0-4.9) H 07/05/22 18:18 Total Protein 8.0 g/dL (6.6-8.7) 07/07/22 00:17 Albumin 3.0 g/dL (3.5-5.2) L 07/07/22 00:17 Globulin 5.0 g/dL (1.3-4.6) H 07/07/22 00:17 Triglycerides 130 mg/dL (0-150) 07/05/22 00:50 Cholesterol 184 mg/dL (0-200) 07/05/22 00:50 LDL Cholesterol, Calc 110 mg/dL (50-129) 07/05/22 00:50 HDL Cholesterol 48 mg/dL (60-100) L 07/05/22 00:50 LDL/HDL Ratio 2.29 RATIO (0.00-3.22) 07/05/22 00:50 Cholesterol/HDL Ratio 3.83 mg/dL (1.0-5.00) 07/05/22 00:50 Vancomycin Trough 6.8 ug/mL (10-15) L 07/07/22 00:17 Vitals Last Vital Signs Temp 98.7 F 07/08/22 07:32 Pulse 86 07/08/22 07:32 Resp 18 07/08/22 07:32 BP 123/81 07/08/22 07:32 Pulse Ox 98 07/08/22 07:32 O2 Del Method 07/07/22 07:46 O2 Flow Rate 6 07/07/22 07:31 Discharge Plan Discharge Patient Disposition: Home Condition: Stable Prescriptions: New (DME) glucometer testing kit See Rx Instructions .Route .MEDSUPPLY Qty: 1 0RF Rx Instructions: Glucometer test kit, strips #100, lancets #100, check blood sugars 3 times daily after meal Basaglar KwikPen U-100 Insulin 100 unit/mL (3 mL) insulin pen 5 unit SUBCUT Q12H 30 Days Qty: 15 0RF Novolog Flexpen U-100 Insulin 100 unit/mL (3 mL) insulin pen See Rx Instructions .ROUTE .COMPLEX Qty: 15 0RF Rx Instructions: Inject subcut, 3 times daily, after meals, based on sliding scale provided ciprofloxacin HCl 500 mg Tablet 500 mg PO BID 14 Days Qty: 28 0RF doxycycline monohydrate 100 mg Tablet 100 mg PO BID 14 Days Qty: 28 0RF Discharge Orders: Discharge Order (Routine); Ordered 07/08/22 Ordered By: Krunal Silverio Referrals: John Batista DPM [Physician] - 1 week Jorge Alberto Spaulding MD [Physician] - 07/10/22 8:45 am Discharge Diet: Diabetic Discharge Activity: Resume usual activity Patient Instructions: Diabetes and Diet, Insulin Aspart, Recombinant (By injection) (Novolog, Novolog..., Insulin Glargine (By injection), Foot Care for People with Diabetes (DC), Type 2 Diabetes in Adults: New Diagnosis (DC), Diabetic Foot Ulcers (GEN), Chronic Wounds (DC), What to Do if Your Blood Sugar is Low (DC), How to Check your Blood Sugar (DC), Non-Insulin Pens for People with Diabetes (GEN), Type 2 Diabetes Management for Adults (DC), Opioid Safety Activity Restrictions/Additional Instructions: - For his right foot surgery, heel touch only for transfers, otherwise utilize postop shoe or cam boot when ambulating -Keep surgical site and bandage on, keep it clean and dry, for showers please keep it covered with a plastic bag -Do not change dressings, follow-up with Dr. Batista next week for dressing changes -Please take antibiotics for a total of 2 weeks, drink plenty of electrolyte balance fluids such as water or Gatorade -Please monitor your blood sugars closely -Monitor your blood sugars 3 times daily as after meals -Please record your blood sugars, and a blood sugar log -For your NovoLog -Please inject blood sugar after meals based on sliding scale provided -Do not inject insulin if you do not eat as hypoglycemia kills -This is a NovoLog sliding scale -Insulin sliding fingerstick? Insulin 141-180?2 units/sq 181-220?4 units/sq 221-260?6 units/sq 261-300?8 units/sq 301-350 10 units/sq 351-400 12 units/sq > 400? 14 units/sq -For your Lantus, inject 5 units every 12 hours -Do not inject Lantus based on sliding scale -Inject Lantus 5 units every 12 hours scheduled, please follow-up with primary care provider for changes in the dose -If your blood sugar is greater than 500 go to the emergency room -If your blood sugar is less than 60 or at anytime you feel lightheaded or dizzy or diaphoretic or have chest palpitations check your blood sugar, and eat a hard candy or drink orange juice and go immediately to the emergency room -Remember hypoglycemia kills, so if his blood sugar is less than 60 we have to increase it by taking in a sugary meal such as a hard candy or orange juice and go to the emergency room -If you have any questions please call us where here to help Discharge Attestations Time Spent in Discharge Care*: less than 30 min Quality Metrics Clinical Quality Measures [ No reported AMI, CVA or VTE this stay] Coding Level of Care Code Acute g [facility] note Diagnoses Osteomyelitis M86.9 Diabetes E11.9
[2022-07-08 11:08] LABS: Glucose Point of Care 295 mg/dL (70-110)
[2022-07-08 11:48] VITALS: BP 121/75; PULSE 85; RESP 17; TEMP 36.9; O2SAT 97
== END 2022-07-08 14:00 | disposition home or self-care (01) | DRG 255 ==
LOC: ER 03:12 → ICU 06:30 → MEDSURG 07-07 18:02
PROVIDERS: Podiatrist Foot & Ankle Surgery; Admitting Provider Student in an Organized Health Care Education/Training Program; Emergency Provider Emergency Medicine; Visit Provider Family Medicine
PROC: 0Y6R0Z0 Detachment at Right 2nd Toe, Complete, Open Approach (ICD-10-PCS; principal; 2022-07-05 07:30)
PROC: 0YQM0ZZ Repair Right Foot, Open Approach (ICD-10-PCS; CPT 13160; principal; 2022-07-07 07:00)
DX: E11.52 Type 2 diabetes mellitus with diabetic peripheral angiopathy with gangrene (principal); A48.0 Gas gangrene; M86.9 Osteomyelitis, unspecified; M84.477A Pathological fracture, right toe(s), initial encounter for fracture; L97.516 Non-pressure chronic ulcer of other part of right foot with bone involvement without evidence of necrosis; E11.621 Type 2 diabetes mellitus with foot ulcer; E11.69 Type 2 diabetes mellitus with other specified complication; L03.031 Cellulitis of right toe; B95.62 Methicillin resistant Staphylococcus aureus infection as the cause of diseases classified elsewhere; E11.65 Type 2 diabetes mellitus with hyperglycemia
CPT/HCPCS: 36415; 36416; 73700; 80053; 80061; 80202; 82962; 83036; 85025; 85651; 86140; 87040; 87070; 87075; 87077; 87186; 87205; 87641; 88305; 88311; 96365; 96372; 96375; 97116; 97161; 99285; J1650; J1815; J2250; J2370; J2543; J2704; J3010; J3370; J3490; J7030; J7050; L3260